=== PATIENT | female | born 1995 | race Caucasian/White ===

== ENCOUNTER → 2016-06-08 | Outpatient (CLI) | payer BC ==
[~2016-06-08] MED LIST: AMOX500C5 PO
[2016-06-08 16:12] VITALS: BP 124/80
--- NOTE | 2016-06-08 16:12 | Urgent Care T Sheet Gen (E) ---
Intake General Temperature (Fahrenheit): 97.9 Pulse: 134 Blood Pressure Systolic: 124 Blood Pressure Diastolic: 80 Respirations: 20 SPO2: 97 Description of Symptoms Patient presents with sore throat, fever and aches since last night. Notes a mild cough but biggest complaint is sore throat. No nasal symptoms. No meds to treat her symptoms. Respiratory Constitutional Symptoms: Fever Malaise EENTM: Throat pain Respiratory: No symptoms reported Cardiovascular: No symptoms reported Neurological: Headache All Other Systems Reviewed Remaining Systems: All other systems reviewed with negative findings Physical Exam Physical Exam General Appearance: WD/WN No apparent distress Eyes, Ears, Nose, Throat Ex: TMs normal Pharyngeal erythema Neck Exam: Supple Lymphadenopathy (anterior cervical) Respiratory Exam: Lungs clear Normal breath sounds Cardiovascular Exam: Regular rate, rhythm Progress/Orders Lab Results Labs Results: Rapid Strep (positive) Departure Urgent Care Impression Impression: Primary Impression: Strep pharyngitis Departure Disposition: HOME OR SELF-CARE Condition: Stable Additional Instructions: Rapid strep was positive. I have started the patient on Amoxicillin x 10 days Rest. Fluids Tylenol or Motrin as needed New toothbrush tomorrow to prevent re-infection Return as needed Patient understands DC instructions. All questions were answered Scripts Amoxicillin (Amoxil)500 Mg Xiumlau774 Mg PO BID Infection #20 CAP Ref 0 Prov:TEMI FREED 06/08/16 End of report . TEMI FREED Jun 08, 2016 16:12
== END ==
LOC: MHUC 15:55
PROVIDERS: ATTEND Physician Assistant
DX: J02.0 Streptococcal pharyngitis (principal)
CPT/HCPCS: 87880; 99203